=== PATIENT | male | born 1945 | race Caucasian/White ===

== ENCOUNTER → 2021-11-22 14:24 | Outpatient (CLI) | payer MEDICARE, BC, SELFPAY ==
[2021-11-22 15:19] LABS: COVID19 -Nasal RAPID Negative (Negative)
== END ==
PROVIDERS: PCP Family Medicine; Visit Provider Surgery
DX: Z01.812 Encounter for preprocedural laboratory examination (principal); Z20.822 Contact with and (suspected) exposure to COVID-19
CPT/HCPCS: 87635; C9803

== ENCOUNTER 2021-11-23 10:41 | Day surgery (SDC) | payer MEDICARE, BC, SELFPAY ==
--- NOTE | 2021-11-23 | PATH_ITS ---
[facility] Accession Number: [id number] . 01 Material submitted: . PART A: esophagus - DISTAL ESOPHAGUS RANDOM BIOPSY PART B: stomach - ANTRUM RANDOM BIOPSY PART C: stomach - GASTRIC POLYPS X 2 . 01 Clinical history: . 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 01 Diagnosis: A. 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 No dysplasia identified. No fungal organisms identified on H/E examination. See comment. . B. Antrum, Random Biopsy: Gastric antral mucosa with mild chronic inflammation and focal active inflammation. See comment. . C. Gastric Polyps x2, Biopsy: Fundic gland polyps. No Helicobacter pylori organisms identified on H/E examination. [facility] [place] 11/25/2021 1331 Local . 01 Comment: A. The features are consistent with Guzman's esophagus in the right clinical setting. Correlation with endoscopic appearance is recommended. . B. A Helicobacter pylori immunostain will be performed and the results will be reported as an addendum. . 01 Electronically signed: . Nela Collins MD, Pathologist NPI- [id number] . 01 Gross description: . Part A: DISTAL ESOPHAGUS RANDOM BIOPSY: Received in formalin are 3 fragment(s) of case, soft tissue measuring 0.3 x 0.2 x 0.1 cm to 0.2 x 0.1 x 0.1 cm submitted entirely in 1 cassette(s) Part B: ANTRUM RANDOM BIOPSY: Received in formalin are 2 fragment(s) of case, soft tissue measuring 0.3 x 0.2 x 0.2 cm to 0.1 x 0.1 x 0.1 cm submitted entirely in 1 cassette(s) Part C: GASTRIC POLYPS X 2: Received in formalin are 2 fragment(s) of case, soft tissue measuring 0.2 x 0.2 x 0.2 cm to 0.2 x 0.2 x 0.2 cm submitted entirely in 1 cassette(s) /CPE 11/24/2021 0911 Local . 01 Pathologist provided ICD-10: K22.70, K29.70, D13.1 . 01 CPT . 367117, 227666, 432512 Specimen Comment: A courtesy copy of this report has been sent to [phone] Performed at: 01 [facility] [address] [place] [address], [place], [place] [id number] MD Tone Chen MD Phone: [phone]
--- NOTE | 2021-11-23 11:13 | PM.HP.1 ---
History of Present Illness History of Present Illness Date Patient Seen: 11/23/21 Time Patient Seen: 11:13 Chief complaint: EDG w/ Biopsy Narrative: I reviewed my recent note from July. No significant changes. Patient History Medical History Arthritis Bean esophagus GERD (gastroesophageal reflux disease) Gout Hypercholesteremia Surgical History Hx of tonsillectomy Meds Home Medications and Allergies Home Medications Medication Instructions Recorded Confirmed Type celecoxib 200 mg capsule 200 mg PO DAILY 11/23/21 11/23/21 History esomeprazole magnesium 40 mg 40 mg PO DAILY 11/23/21 11/23/21 History capsule,delayed release ipratropium bromide 42 mcg (0.06 1 spray intranasal 11/23/21 History %) nasal spray Allergies Allergy/AdvReac Type Severity Reaction Status Date / Time paroxetine Allergy Severe Rash Verified 11/23/21 11:12 Review of Systems Review of Systems ROS: Yes All systems reviewed with the patient and are negative except as otherwise documented Exam Const General: cooperative HENMT Head: normal to inspection Eyes General: appearance normal, both eyes and all related structures Neck Neck: normal visual inspection Chest Chest: normal inspection of the chest Resp Effort & Inspection: normal respiratory effort Cardio Rate: regular rate GI Inspection: normal to inspection Skin General: no rashes or lesions noted Neuro General: patient alert and patient awake Extrem General: normal to inspection and no pedal edema Psych Appearance: grossly normal Assessment & Plan Assessment & Plan narrative: 76-year-old male with Barretts. He is indicated for surveillance. EGD is planned for today. Time Spent With Patient Critical Care time: I spent a total of [] minutes of critical care time on this patient's care today; this time is exclusive of procedural time.
[2021-11-23 11:16] VITALS: BMI 35.9
[2021-11-23 11:20] VITALS: BP 141/87; PULSE 75; RESP 16; TEMP 36.1; O2SAT 98
[2021-11-23] MEDS: SODIUM CHLORIDE 0.9% 1,000 ML 84 ML IV (11:24)
--- NOTE | 2021-11-23 11:53 | PM.PREOP ---
Pre-operative Note COVID-19 COVID-19 status: Negative Result date/Date tested (Pos, Neg/Pending): 11/22/21 Criteria for continued procedure: Possibility delay results in more complex future surgery or treatment Interval Note History & Physical reviewed/Exam performed by Physician: Yes Changes to H&P: No ASA Class (for procedural sedation): II
--- NOTE | 2021-11-23 12:14 | PM.OP.EGD ---
Operative Date/Time/Diagnoses Date of procedure: 11/23/21 Time of procedure: 12:14 Pre-op diagnosis: Bean's esophagus Post-op diagnosis: same Procedure & Clinicians Study performed: EGD with biopsies Same procedure as scheduled: Yes Indications: Bean's esophagus Surgeon: Ajay Ramirez Procedure Notes SCOAP/Timeout: Done Procedure in detail: After the risks and benefits were explained, written and verbal informed consent was obtained. The patient was brought into the procedure room and placed into the left lateral decubitus position. Please see nurse heddle machine operator notes for sedation details. The scope was introduced into the mouth through the bite block and advanced under direct visualization to the 2nd portion of the duodenum. The scope was slowly withdrawn carefully examining the mucosa for any defects or lesions. Retroflexed views were accomplished in the stomach. The stomach was decompressed, the scope was then removed from the patient who tolerated the procedure well. Sedation minutes: 9 Complications: none Impression: 1. Duodenum: This was normal from the bulb through the 2nd portion. 2. Stomach: Patient had a erythematous gastropathy with some streaky elements in the antrum. Random antral biopsies were acquired for exclusion of Helicobacter. Retroflexed views of the LES disclosed small sliding hiatal hernia. A couple of diminutive gastric polyps were addressed with cold forceps from the gastric body. 3. Esophagus: The squamocolumnar junction appeared to extend up into the tubular esophagus in the 3:00 a.m. through 7:00 a.m. location. This was consistent with a prior confirmed diagnosis of Barretts esophagus. I rate this as C 0 M 1.5. Biopsies were taken from the Bean's segment 4 histologic evaluation. I did not appreciate any evidence of nodularity active inflammation or ulceration in this segment. The remainder of the esophagus was unremarkable. Endoscopic diagnosis 1. C 0 M 1.5 Bean's 2. Small hiatal hernia 3. Diminutive gastric polyps 4. Gastropathy Post-procedure Plan for aftercare: 1. Await histopathology 2. If non dysplastic Bean's is confirmed, repeat upper endoscopy will be suggested for 3 years time. 3. Continue anti-reflux therapy. Disposition: PACU
[2021-11-23 12:15] VITALS: BP 127/82; PULSE 80; RESP 16; O2SAT 96
[2021-11-23 12:20] VITALS: BP 135/73; PULSE 84; RESP 16; TEMP 36.9; O2SAT 96
[2021-11-23 12:25] VITALS: BP 127/82; PULSE 92; RESP 16; O2SAT 98
[2021-11-23 12:31] VITALS: BP 130/70; PULSE 88; RESP 16; O2SAT 97
[2021-11-23 12:38] VITALS: BP 131/74; PULSE 80; RESP 16; O2SAT 98
--- NOTE | 2021-11-23 12:44 | SUR.PHASEII ---
discharge instructions reviewed with patient and time allowed for questions. Pt denies any distress and ready to discharge home. Pt discharged with all personal belongings via wheelchair to meet spouse who will transport pt home.
== END 2021-11-23 12:45 | disposition home or self-care (01) ==
PROVIDERS: PCP Family Medicine; Referring Provider Internal Medicine Gastroenterology; Visit Provider Internal Medicine Gastroenterology
PROC: 0DJ08ZZ Inspection of Upper Intestinal Tract, Via Natural or Artificial Opening Endoscopic (ICD-10-PCS; CPT 43235; principal; 2021-11-23 12:00)
DX: K22.70 Barrett's esophagus without dysplasia (principal); K31.7 Polyp of stomach and duodenum; K44.9 Diaphragmatic hernia without obstruction or gangrene; K31.9 Disease of stomach and duodenum, unspecified; K29.50 Unspecified chronic gastritis without bleeding
CPT/HCPCS: 43239; J2704